=== PATIENT | male | born 2000 | race Caucasian/White ===

== ENCOUNTER 2025-01-23 17:39 | Emergency (ER) | payer OTHER ==
[~2025-01-23] VITALS: Ht 190.5 cm; Wt 113.6 kg
[2025-01-23 17:49] VITALS: TEMP 36.6; O2SAT 100
[2025-01-23] MEDS: IBUPROFEN 400MG TABLET PO ONE (20:15)
[2025-01-23 23:54] VITALS: BP 155/92; PULSE 62; RESP 18; O2SAT 100
== END 2025-01-23 23:54 | disposition home or self-care (01) ==
LOC: ER 17:39
DX: R51.9 Headache, unspecified (principal); M53.3 Sacrococcygeal disorders, not elsewhere classified; V49.9XXA Car occupant (driver) (passenger) injured in unspecified traffic accident, initial encounter; Y93.89 Activity, other specified; Y92.89 Other specified places as the place of occurrence of the external cause; Y99.8 Other external cause status
CPT/HCPCS: 72100; 99284